=== PATIENT | male | born 1975 | race Caucasian/White ===

== ENCOUNTER 2021-05-14 19:34 | Emergency (ER) | payer SELFPAY ==
[~2021-05-14] VITALS: Ht 175.3 cm; Wt 101.2 kg
[2021-05-14 19:52] VITALS: BP 175/112
--- NOTE | 2021-05-14 19:57 | NUR ---
PT IN TRIAGE.
[2021-05-14] MEDS ORDERED: LID5T TP (20:23)
[2021-05-14] MEDS ORDERED: CYCL-711 PO (20:23)
[2021-05-14] MEDS ORDERED: ACET-10509 PO (20:23)
[2021-05-14] MEDS ORDERED: IBUP-2213 PO (20:23)
[2021-05-14 20:37] VITALS: BP 175/112
--- NOTE | 2021-05-14 20:37 | NUR ---
Patient discharged with v/s stable. Written and verbal after care instructions given and explained. Patient alert, oriented and verbalized understanding of instructions. Ambulatory with steady gait. All questions addressed prior to discharge. ID band removed. Patient advised to follow up with PMD. Rx of FLEXARIL, IBUPROFEN, TYLENOL, LIDOCAINE PATCH given. Patient educated on indication of medication including possible reaction and side effects. Opportunity to ask questions provided and answered.
== END 2021-05-14 20:37 | disposition home or self-care (01) ==
LOC: MED 19:34
DX: S39.012A Strain of muscle, fascia and tendon of lower back, initial encounter (principal); X50.0XXA Overexertion from strenuous movement or load, initial encounter; Y93.89 Activity, other specified; Y92.89 Other specified places as the place of occurrence of the external cause; Y99.8 Other external cause status
CPT/HCPCS: 99283